=== PATIENT | male | born 1940 | race Hispanic/Latino ===

== ENCOUNTER 2016-03-08 09:46 | Day surgery (SDC) | payer MEDICARE ==
[2016-03-06 11:09] LABS: Basophils % (Auto) 0.8 % (0.0-1.8); Hematocrit 37.8 % (35.5-45.6); Hemoglobin 12.6 gm/dl (11.8-15.2); Mean Corpuscular HGB Conc 33 % (32-34); Mean Corpuscular Hemoglobin 31 pg (28-32); Mean Corpuscular Volume 93 fl (84-94); Platelet Count 263 K/mm3 (140-440); Red Blood Count 4.07 M/mm3 (3.65-5.03); Red Cell Distribution Width 13.7 % (13.2-15.2); White Blood Count 10.6 K/mm3 (4.5-11.0)
--- NOTE | 2016-03-06 11:12 | Anesthesia Consultation ---
Anesthesia Consult and Med Hx Date of service: 03/06/16 - Airway Anesthetic Teeth Evaluation: Good ROM Head & Neck: Adequate Mental/Hyoid Distance: Adequate Mallampati Class: Class III Intubation Access Assessment: Possibly Difficult - Pre-Operative Health Status ASA Pre-Surgery Classification: ASA3 Proposed Anesthetic Plan: General - Pulmonary Hx Smoking: Yes (CHEWING TOBACCO STOPPED X 4 YRS ) Hx Asthma: Yes (SEASONAL) Home Oxygen Therapy: Yes (at nights) Hx Sleep Apnea: Yes (DX SLEEP APNEA , NO CPAP USE,USES O2 AT NIGHT) - Cardiovascular System Hx Hypertension: Yes (1999) Hx Coronary Artery Disease: Yes Hx Heart Attack/AMI: Yes (1997) Hx Percutaneous Transluminal Coronary Angioplasty (PTCA): Yes (1997 in 1997) Hx Pacemaker: Yes (2014) Hx Peripheral Vascular Disease: Yes - Central Nervous System Hx Back Pain: (knee pain, uses cane) Hx Psychiatric Problems: No - Gastrointestinal Hx Gastroesophageal Reflux Disease: Yes - Endocrine Hx Renal Disease: Yes (decreased renal function) Hx End Stage Renal Disease: No Hx Non-Insulin Dependent Diabetes: Yes (diet control) Hx Hypothyroidism: Yes (ON MEDS) - Other Systems Hx Cancer: Yes (prostate CA, 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
[2016-03-06 11:20] LABS: INR 1.03 (0.87-1.13)
[2016-03-06 11:24] LABS: Alanine Aminotransferase 16 units/L (7-56); Albumin 3.9 g/dL (3.9-5); Albumin/Globulin Ratio 1.4 %; Alkaline Phosphatase 87 units/L (35-129); Anion Gap 16 mmol/L; BUN/Creatinine Ratio 24.28; Bilirubin,Total 0.7 mg/dL (0.1-1.2); Blood Urea Nitrogen 17 mg/dL (9-20); Calcium 9.5 mg/dL (8.4-10.2); Carbon Dioxide 29 mmol/L (22-30); Chloride 99.5 mmol/L (98-107); Glucose 101 mg/dL (75-100); Potassium 3.9 mmol/L (3.6-5.0); Sodium 141 mmol/L (137-145); Total Protein 6.7 g/dL (6.3-8.2)
[~2016-03-08 09:46] MED LIST: NACL 0.9% 1000 ML 1,000 ML IV SCH; PEPCID IV NR; VERSED IV NR; WATER FOR IRRIG STERILE IR ONE
[2016-03-08] MEDS ORDERED: DIPRIVAN 10 MG/ML IV ONE (10:48)
[2016-03-08] MEDS ORDERED: DILAUDID ONE (10:48)
[2016-03-08] MEDS ORDERED: NACL BACTERIOSTATIC INFILTRATI ONE (11:06)
--- NOTE | 2016-03-08 11:43 | Anesthesia Day of Surgery ---
Anesthesia Day of Surgery - Day of Surgery Patient Examined: Yes Patient H&P Reviewed: Yes Patient is NPO: Yes Beta Blockers: Yes
[2016-03-08] MEDS ORDERED: PEPCID IV NR (12:00)
[2016-03-08] MEDS ORDERED: ANCEF/STERILE WATER 2 GM/20 ML IV NR (12:00)
[2016-03-08] MEDS ORDERED: OMNIPAQUE 300 MG/50 ML (CATH LAB) IV ONE (13:12)
[2016-03-08] MEDS ORDERED: WATER FOR IRRIG STERILE IR ONE (13:12)
[2016-03-08] MEDS ORDERED: XYLOCAINE MPF 2% ONE (13:33)
[2016-03-08] MEDS ORDERED: ZOFRAN ONE (13:33)
--- NOTE | 2016-03-08 13:54 | Post Operative Note ---
Pre-op diagnosis: bladder cancer Post-op diagnosis: same Findings: erythema Procedure: cysto rpgs biopsie s Anesthesia: GETA Surgeon: LAILA LARSON Estimated blood loss: none Pathology: list (bladder) Specimen disposition: to lab Condition: stable Disposition: PACU
--- NOTE | 2016-03-08 13:56 | Discharge Summary ---
Short Stay Discharge Plan Activity: other (no straining ) Weight Bearing Status: Full Weight Bearing Diet: low fat, low cholesterol, low salt Special Instructions: other (inc fluids ) Durable Medical Equipment Needed Upon Discharge: other (teach maurer care ) Follow up with: MOY PHILLIPS MD [Primary Care Provider] - 7 Days LAILA LARSON MD [Staff Physician] - 03/10/16
[2016-03-08] MEDS ORDERED: NACL ONE (14:22)
--- NOTE | 2016-03-08 15:13 | Operative Report ---
PREOPERATIVE DIAGNOSIS: Bladder cancer. POSTOPERATIVE DIAGNOSIS: Bladder cancer. PROCEDURE: Cystoscopy, retrograde biopsy. SURGEON: Daniel Ortez M.D. ANESTHESIA: General. FINDINGS: This is a gentleman with history of bladder cancer, now presents for followup cystoscopy. DESCRIPTION OF PROCEDURE: The patient brought to the operating room and placed on the operating table. Following induction of general anesthesia, placed in lithotomy position, prepped and draped in usual sterile fashion. Cystourethroscopy showed narrowing in the urethra. The bladder neck was opened and scarred. There was erythema right distal to the left orifice. Retrograde showed lateral deviation, right ureter with renal masses bilaterally. Kidneys were enlarged. Biopsies were obtained of bladder neck, posterior bladder wall, right lateral wall prostatic urethra. The patient tolerated the procedure well. Area was cauterized. Blair catheter was left, he was brought to recovery room. Family notified. JOB# [id number] JACOBO/EDGAR
[2016-03-08 16:10] VITALS: BP 142/75
--- NOTE | 2016-03-08 16:52 | Cat Scan Report ---
CT ABDOMEN AND PELVIS WITHOUT AND WITH CONTRAST: INDICATION: Renal masses. COMPARISON: None similar. FINDINGS: Abdomen and pelvis CT performed before and after intravenous administration of 100 cc of Omnipaque 300. LUNG BASES: Mild bibasilar atelectasis posteriorly. No effusions. Normal heart size. Streak artifact from dual-chamber pacemaker leads. Atherosclerotic aortic and coronary calcifications. Right hemidiaphragm mildly elevated. ABDOMEN: Precontrast images demonstrate at least 2 nonobstructing right renal calculi, the largest towards the upper pole approximately 5 mm, axial image 83, series 2. At least 2 smaller nonobstructing left renal calculi also noted, the largest again towards the upper pole approximately 4 mm, axial image 81. Approximately 4.5 x 2.9 cm slightly lobulated right renal cortical hypodensity anteriorly measures 1 HU. Slight right renal malrotation possible. Mild bilateral perinephric stranding. Minimal, 7 mm dependent density within the gallbladder as well, axial image 64, series 2. Postcontrast images demonstrate liver, spleen, remainder gallbladder, pancreas, adrenals, nonaneurysmal though slightly tortuous abdominal aorta with few atherosclerotic aortoiliac calcifications, IVC and remainder kidneys within normal limits. Right renal hypodense lesion measures simple cystic on multiple phases with maximum attenuation of 8 Hounsfield units on the delayed phase. No ascites or size significant adenopathy. Nonopacified GI tract evaluation limited, though grossly nonobstructive. Small fat-containing umbilical hernia with a transverse neck of 1.4 cm. PELVIS: Blair catheter decompresses the urinary bladder, limiting assessment. Few pelvic surgical clips, possibly related to prostate and seminal vesicle removal. Unremarkable rectosigmoid. Few pelvic phleboliths. No free fluid or significant adenopathy. Approximately 1.5 cm right and 3.2 cm diameter left fat-containing inguinal hernias. [id number] multilevel degenerative changes along the imaged spine, including degenerative spurring, T10-T11 disc calcifications and multilevel lumbar disc degeneration, including vacuum phenomenon as also [id number] L1-L2 disc narrowing. CONCLUSION: 1. No acute CT abnormality in this patient with small, nonobstructing bilateral nephrolithiasis noted, as described. No suspicious renal enhancement with a simple right renal cortical cyst noted, as described. 2. Various other incidental findings, including pacemaker, bibasilar atelectasis, mildly elevated right hemidiaphragm, minimal cholelithiasis, possible prostatectomy, Blair catheter within the urinary bladder, fat-containing bilateral inguinal hernias and multilevel spinal degenerative changes, amongst others, as detailed above. Thank you for the opportunity to participate in this patient's care.
--- NOTE | 2016-03-09 09:13 | Fluoroscopy Report ---
Retrograde pyelogram: Injected contrast into the left ureter demonstrates normal ureter and intrarenal collecting system the period no filling defects. There is some question of splaying of upper pole infundibula and via a renal mass. Injection of contrast into the right ureter demonstrates an unremarkable ureter. There is marked splaying of the middle and lower calyces consistent with a mass. No filling defects or other findings. Impression: Findings raise suspicion of bilateral renal masses.
== END 2016-03-08 16:20 | disposition home or self-care (01) ==
LOC: OR 09:46
PROVIDERS: ATTEND Urology
DX: N30.20 Other chronic cystitis without hematuria (principal); N32.89 Other specified disorders of bladder; N35.9 Urethral stricture, unspecified; N28.81 Hypertrophy of kidney; K21.9 Gastro-esophageal reflux disease without esophagitis; I10 Essential (primary) hypertension; J45.909 Unspecified asthma, uncomplicated; I25.10 Atherosclerotic heart disease of native coronary artery without angina pectoris; E11.9 Type 2 diabetes mellitus without complications; E03.9 Hypothyroidism, unspecified; E78.00 Pure hypercholesterolemia, unspecified; I25.2 Old myocardial infarction; E66.9 Obesity, unspecified; Z68.36 Body mass index [BMI] 36.0-36.9, adult; Z85.46 Personal history of malignant neoplasm of prostate; Z85.51 Personal history of malignant neoplasm of bladder; Z95.5 Presence of coronary angioplasty implant and graft; Z95.0 Presence of cardiac pacemaker; Z87.891 Personal history of nicotine dependence; Z98.890 Other specified postprocedural states
CPT/HCPCS: 36415; 52204; 74178; 74420; 80053; 82962; 85025; 85610; 85730; 88112; 88305; 88307; A4217; C1758; J0690; J1170; J2405; J2704; J2930; J7030; Q9967

== ENCOUNTER 2016-06-09 10:18 | Outpatient (CLI) | payer MEDICARE, OTHER ==
--- NOTE | 2016-06-10 12:39 | Nuclear Medicine Report ---
NUCLEAR MEDICINE WHOLE-BODY BONE SCAN: 06/09/16 CLINICAL: Prostate cancer. Right knee pain. COMPARISON: None. TECHNIQUE: 25.0millicuries technetium 99m MDP was injected intravenously and whole body scans were obtained at 3 hours. FINDINGS: Normal distribution of radionuclide in the skeleton and soft tissues except for uptake in the knees, ankles and right shoulder consistent with arthritis. Slightly greater uptake in the right knee. No suspicious uptake. IMPRESSION: No evidence of metastasis.
== END 2016-06-09 10:19 | disposition home or self-care (01) ==
LOC: NM 10:18
PROVIDERS: ATTEND Urology
DX: M13.861 Other specified arthritis, right knee (principal); C61 Malignant neoplasm of prostate
CPT/HCPCS: 78306; A9503

== ENCOUNTER 2016-07-03 06:19 | Day surgery (SDC) | payer MEDICARE ==
[~2016-07-03 06:19] MED LIST changes: -PEPCID IV NR; +PEPCID PO NR; -VERSED IV NR; -WATER FOR IRRIG STERILE IR ONE
[2016-07-03] MEDS ORDERED: NACL BACTERIOSTATIC INFILTRATI ONE (06:54)
[2016-07-03] MEDS ORDERED: DECADRON ONE (06:56)
[2016-07-03] MEDS ORDERED: ZOFRAN ONE (06:56)
[2016-07-03] MEDS ORDERED: SUBLIMAZE ONE (06:57)
[2016-07-03] MEDS ORDERED: DIPRIVAN 10 MG/ML IV ONE (06:57)
[2016-07-03] MEDS ORDERED: XYLOCAINE MPF 2% ONE (06:57)
--- NOTE | 2016-07-03 07:00 | Anesthesia Consultation ---
Anesthesia Consult and Med Hx Date of service: 07/03/16 - Airway Anesthetic Teeth Evaluation: Good ROM Head & Neck: Adequate Mental/Hyoid Distance: Adequate Mallampati Class: Class II Intubation Access Assessment: Probably Good - Pulmonary Exam CTA: Yes - Cardiac Exam Cardiac Exam: RRR - Pre-Operative Health Status ASA Pre-Surgery Classification: ASA3 Proposed Anesthetic Plan: General - Pulmonary Hx Smoking: Yes (CHEWING TOBACCO STOPPED X 4 YRS ) Hx Asthma: Yes (SEASONAL) Hx Sleep Apnea: Yes (DX SLEEP APNEA , NO CPAP USE,USES O2 AT NIGHT) - Cardiovascular System Hx Hypertension: Yes (1999) Hx Coronary Artery Disease: Yes Hx Heart Attack/AMI: Yes (1997) Hx Percutaneous Transluminal Coronary Angioplasty (PTCA): Yes Hx Pacemaker: Yes (2014) Hx Peripheral Vascular Disease: Yes - Central Nervous System Hx Back Pain: Yes Hx Psychiatric Problems: No - Gastrointestinal Hx Gastroesophageal Reflux Disease: Yes - Endocrine Hx Renal Disease: Yes Hx End Stage Renal Disease: No Hx Non-Insulin Dependent Diabetes: Yes (diet control) Hx Hypothyroidism: Yes (ON MEDS) - Other Systems Hx Cancer: Yes (prostate CA, 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
--- NOTE | 2016-07-03 07:02 | Anesthesia Day of Surgery ---
Anesthesia Day of Surgery - Day of Surgery Patient Examined: Yes Patient H&P Reviewed: Yes Patient is NPO: Yes Beta Blockers: Yes
[2016-07-03 07:27] LABS: Hemoglobin 12.2 gm/dl (11.8-15.2)
[2016-07-03 07:40] LABS: Anion Gap 15 mmol/L; BUN/Creatinine Ratio 25.71; Blood Urea Nitrogen 18 mg/dL (9-20); Calcium 9.4 mg/dL (8.4-10.2); Carbon Dioxide 29 mmol/L (22-30); Chloride 101.9 mmol/L (98-107); Glucose 112 mg/dL (75-100); Potassium 3.9 mmol/L (3.6-5.0); Sodium 142 mmol/L (137-145)
[2016-07-03] MEDS ORDERED: ANCEF/STERILE WATER 2 GM/20 ML IV NR (08:10)
[2016-07-03] MEDS ORDERED: ePHEDrine SULFATE ONE (08:19)
[2016-07-03] MEDS ORDERED: WATER FOR IRRIG STERILE IR ONE ×2 (08:27)
[2016-07-03] MEDS ORDERED: DILAUDID IV PRN (08:37)
[2016-07-03] MEDS ORDERED: PERCOCET 5/325 PO PRN (08:37)
--- NOTE | 2016-07-03 09:18 | Post Operative Note ---
Date of procedure: 07/03/16 Pre-op diagnosis: bladder cancer Post-op diagnosis: same Findings: 1.5cm BT Procedure: cysto turbt rpgs Anesthesia: GETA Surgeon: LAILA LARSON Estimated blood loss: minimal Pathology: list (bladder) Specimen disposition: to lab Condition: stable Disposition: PACU
--- NOTE | 2016-07-03 09:19 | Discharge Summary ---
Short Stay Discharge Plan Activity: other (no straining ) Weight Bearing Status: Full Weight Bearing Diet: low fat, low cholesterol, low salt Special Instructions: other (teach maurer care ) Durable Medical Equipment Needed Upon Discharge: other (inc fluids ) Follow up with: MOY PHILLIPS MD [Primary Care Provider] - 7 Days LAILA LARSON MD [Staff Physician] - 3 Days
--- NOTE | 2016-07-03 09:36 | Post Anesthesia Evaluation ---
- Post Anesthesia Evaluation Patient Participated: Yes Airway Patent: Yes Stable Respiratory Function: Yes Nausea/Vomiting: No Temp > 96.8F: Yes Pain Manageable: Yes Adequeate Hydration: Yes Anesthesia Complications: No Block Receding Appropriately: Not Applicable Patient on Ventilator: No
--- NOTE | 2016-07-03 12:42 | Operative Report ---
PREOPERATIVE DIAGNOSIS: Bladder cancer. POSTOPERATIVE DIAGNOSIS: Bladder cancer with recurrent tumor over left orifice. PROCEDURE: Cystoscopy, retrograde, transurethral resection of bladder tumor and bladder biopsy. SURGEON: Daniel Ortez M.D. ANESTHESIA: General. FINDINGS: This is a gentleman with bladder tumor and a history of bladder cancer. He has a small papillary tumor about 1 to 1.5 cm above the left orifice. He had some erythema, which was previously biopsied. DESCRIPTION OF PROCEDURE: The patient was brought to the operating room and placed on the operating table. Following induction of anesthesia, placed in lithotomy position, prepped and draped in usual sterile fashion. Retrograde showed a delicate system with evidence of renal cyst and extrinsic compression. There was good drainage. At this point, biopsies were taken of the posterior wall erythema and right lateral wall. This was cauterized. Resectoscope was inserted and a small tumor was resected, being careful not to injure the left orifice. This was cauterized well away from the orifice. The patient tolerated the procedure well. We met with the family showed him the pictures, but we clearly saw some muscle and was brought to recovery in stable condition. JOB# [id number] JACOBO/EDGAR
[2016-07-03 13:57] VITALS: BP 145/76
--- NOTE | 2016-07-03 15:27 | Fluoroscopy Report ---
RETROGRADE PYELOGRAM: There is adequate filling of the ureters and intrarenal collecting systems with no filling defects or anatomic abnormalities identified.
== END 2016-07-03 11:45 | disposition home or self-care (01) ==
LOC: OR 06:19
PROVIDERS: ATTEND Urology
DX: C67.4 Malignant neoplasm of posterior wall of bladder (principal); C67.5 Malignant neoplasm of bladder neck; J44.9 Chronic obstructive pulmonary disease, unspecified; I10 Essential (primary) hypertension; I25.10 Atherosclerotic heart disease of native coronary artery without angina pectoris; K21.9 Gastro-esophageal reflux disease without esophagitis; E11.9 Type 2 diabetes mellitus without complications; E78.5 Hyperlipidemia, unspecified; E03.9 Hypothyroidism, unspecified; E66.9 Obesity, unspecified; Z68.36 Body mass index [BMI] 36.0-36.9, adult; Z95.0 Presence of cardiac pacemaker; Z85.46 Personal history of malignant neoplasm of prostate; Z87.891 Personal history of nicotine dependence
CPT/HCPCS: 36415; 52204; 52234; 74420; 80048; 82962; 85014; 85018; 88305; A4217; C1758; J0690; J1170; J2405; J2704; J3010; J7030; Q9967; J1100

== ENCOUNTER 2016-11-27 07:25 | Day surgery (SDC) | payer MEDICARE ==
[~2016-11-27 07:25] MED LIST changes: +NACL BACTERIOSTATIC INFILTRATI ONE
--- NOTE | 2016-11-27 08:02 | Anesthesia Consultation ---
Anesthesia Consult and Med Hx Date of service: 11/27/16 - Airway Anesthetic Teeth Evaluation: Good ROM Head & Neck: Adequate Mental/Hyoid Distance: Adequate Mallampati Class: Class II Intubation Access Assessment: Probably Good - Pulmonary Exam CTA: Yes - Cardiac Exam Cardiac Exam: RRR - Pre-Operative Health Status ASA Pre-Surgery Classification: ASA3 Proposed Anesthetic Plan: General - Pulmonary Hx Smoking: Yes (CHEWING TOBACCO STOPPED X 4 YRS ) Hx Asthma: Yes (SEASONAL) Hx Sleep Apnea: Yes (DX SLEEP APNEA , NO CPAP USE,USES O2 AT NIGHT) - Cardiovascular System Hx Hypertension: Yes (1999) Hx Coronary Artery Disease: Yes Hx Heart Attack/AMI: Yes (1997) Hx Percutaneous Transluminal Coronary Angioplasty (PTCA): Yes Hx Pacemaker: Yes (2014) Hx Peripheral Vascular Disease: Yes - Central Nervous System Hx Back Pain: Yes Hx Psychiatric Problems: No - Gastrointestinal Hx Gastroesophageal Reflux Disease: Yes (once a month) - Endocrine Hx Renal Disease: Yes Hx End Stage Renal Disease: No Hx Non-Insulin Dependent Diabetes: Yes (diet control) Hx Hypothyroidism: Yes (ON MEDS) - Other Systems Hx Cancer: Yes (prostate CA, 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
--- NOTE | 2016-11-27 08:02 | Anesthesia Day of Surgery ---
Anesthesia Day of Surgery - Day of Surgery Patient Examined: Yes Patient H&P Reviewed: Yes Patient is NPO: Yes
[2016-11-27 08:16] LABS: Hematocrit 33.7 % (35.5-45.6); Hemoglobin 11.8 gm/dl (11.8-15.2)
[2016-11-27] MEDS ORDERED: SUBLIMAZE ONE (08:26)
[2016-11-27] MEDS ORDERED: ZOFRAN ONE (08:26)
[2016-11-27] MEDS ORDERED: XYLOCAINE MPF 2% ONE (08:26)
[2016-11-27] MEDS ORDERED: DIPRIVAN 10 MG/ML IV ONE ×2 (08:27→09:43)
[2016-11-27] MEDS ORDERED: ePHEDrine SULFATE ONE (08:51)
[2016-11-27] MEDS ORDERED: ANCEF/STERILE WATER 2 GM/20 ML 2 GM/20 ML SYRINGE IV NR (09:00)
[2016-11-27] MEDS ORDERED: LASIX ONE (10:13)
--- NOTE | 2016-11-27 10:27 | Post Operative Note ---
Date of procedure: 11/27/16 Pre-op diagnosis: heme and bladder cancer Post-op diagnosis: same Findings: ant wall tumor and dome Procedure: cysto biopsies turbt Anesthesia: GETA Surgeon: LAILA LARSON Estimated blood loss: minimal Pathology: list (bladder) Specimen disposition: to lab Condition: stable Disposition: PACU
--- NOTE | 2016-11-27 10:29 | Discharge Summary ---
Short Stay Discharge Plan Activity: other (inc fluids ) Weight Bearing Status: Non-Weight Bearing Diet: low fat, low cholesterol, low salt Special Instructions: other (maurer care ) Durable Medical Equipment Needed Upon Discharge: other (inc fluids ) Follow up with: MOY PHILLIPS MD [Primary Care Provider] - 7 Days LAILA LARSON MD [Staff Physician] - 7 Days
[2016-11-27] MEDS ORDERED: WATER FOR IRRIG STERILE IR ONE ×2 (10:36)
[2016-11-27] MEDS ORDERED: SORBITOL-MANNITOL IRRIG IR ONE (10:37)
--- NOTE | 2016-11-27 10:59 | Operative Report ---
PREOPERATIVE DIAGNOSES: Gross hematuria, history of bladder cancer. POSTOPERATIVE DIAGNOSES: Gross hematuria, history of bladder cancer with tumor, anterior wall and dome. PROCEDURE: Cystoscopy, multiple bladder biopsies, retrograde. SURGEON: Daniel Ortez MD ANESTHESIA: General. FINDINGS: This is a gentleman who is a little late for followup, but had gross hematuria with occasional clots, now presents for cystoscopy. DESCRIPTION OF PROCEDURE: The patient was brought to the operating room and placed on the operating table. Following induction of anesthesia, placed in lithotomy position, prepped and draped in usual sterile fashion. Cystourethroscopy was carried out under direct vision. The urethra was slightly narrow, but no DVIU was required. The bladder neck was open. We entered the bladder and there was old blood at the base, no clots. The left orifice was a little patulous and retrograde showed evidence of some renal cysts. At this point, using the degree lenses, there was a bladder tumor, anterior wall of the bladder, which was oozing. It was actively bleeding, but slowly. There was also patchy area towards the dome of papillary tumor, a little bit of a patch about 1-1.5 cm. Multiple bladder biopsies were done and then that patchy area was excised with a rigid angled biopsy instrument and cauterized down to fatty tissue. We did see fatty tissue. The small tumor, which was about 1 cm was more to more anterior even with torquing the scope under and using the camera, it was hard to get the loop behind it safely. We resected just a little bit of it and then we used the cautery circumferentially and cauterized the entire tumor. It was actively bleeding from about the 9 o'clock position which was stopped. The patient tolerated the procedure well. We cauterized it down to the muscular layer. He is an ill gentleman with multiple comorbidities and he may need a partial cystectomy, but I do not know he can tolerate it with a pacemaker and heart disease. At this point, hemostasis was excellent. We placed a 2-way 22 catheter, brought to recovery in stable condition. JOB# [id number] JACOBO/EDGAR
--- NOTE | 2016-11-27 11:08 | Fluoroscopy Report ---
RETROGRADE PYELOGRAM: History: Gross hematuria. There is adequate filling of the ureters and intrarenal collecting systems with no filling defects or anatomic abnormalities identified. History: No abnormality identified.
[2016-11-27 19:03] VITALS: BP 142/91
== END 2016-11-27 12:59 | disposition home or self-care (01) ==
LOC: OR 07:25
PROVIDERS: ATTEND Urology
DX: C67.1 Malignant neoplasm of dome of bladder (principal); R31.0 Gross hematuria; I10 Essential (primary) hypertension; J45.909 Unspecified asthma, uncomplicated; I25.10 Atherosclerotic heart disease of native coronary artery without angina pectoris; I25.2 Old myocardial infarction; I73.9 Peripheral vascular disease, unspecified; E11.9 Type 2 diabetes mellitus without complications; E03.9 Hypothyroidism, unspecified; K21.9 Gastro-esophageal reflux disease without esophagitis; E66.9 Obesity, unspecified; Z85.51 Personal history of malignant neoplasm of bladder; Z87.891 Personal history of nicotine dependence; Z95.5 Presence of coronary angioplasty implant and graft; Z95.0 Presence of cardiac pacemaker; Z68.36 Body mass index [BMI] 36.0-36.9, adult
CPT/HCPCS: 36415; 52204; 74420; 82962; 84132; 85014; 85018; 88305; A4217; J1940; J2405; J2704; J3010; J7030; Q9967

== ENCOUNTER 2017-03-07 12:10 | Day surgery (SDC) | payer MEDICARE ==
[~2017-03-07 12:10] MED LIST changes: +ANCEF/STERILE WATER 2 GM/20 ML 2 GM/20 ML SYRINGE IV NR; -NACL 0.9% 1000 ML 1,000 ML IV SCH; -NACL BACTERIOSTATIC INFILTRATI ONE; -PEPCID PO NR
[2017-03-07] MEDS ORDERED: NACL BACTERIOSTATIC INFILTRATI ONE (12:55)
--- NOTE | 2017-03-07 13:16 | Anesthesia Consultation ---
Anesthesia Consult and Med Hx Date of service: 03/07/17 - Airway Anesthetic Teeth Evaluation: Good ROM Head & Neck: Adequate Mental/Hyoid Distance: Adequate Mallampati Class: Class III Intubation Access Assessment: Possibly Difficult - Pulmonary Exam CTA: Yes - Cardiac Exam Cardiac Exam: RRR - Pre-Operative Health Status ASA Pre-Surgery Classification: ASA3 Proposed Anesthetic Plan: General - Pulmonary Hx Smoking: Yes (CHEWING TOBACCO STOPPED X 4 YRS ) Hx Asthma: Yes (SEASONAL) Hx Sleep Apnea: Yes (DX SLEEP APNEA , NO CPAP USE,USES O2 AT NIGHT) - Cardiovascular System Hx Hypertension: Yes (1999) Hx Coronary Artery Disease: Yes Hx Heart Attack/AMI: Yes (1997, has LDA stent) Hx Percutaneous Transluminal Coronary Angioplasty (PTCA): Yes Hx Pacemaker: Yes (2014) Hx Peripheral Vascular Disease: Yes - Central Nervous System Hx Back Pain: Yes Hx Psychiatric Problems: No - Gastrointestinal Hx Gastroesophageal Reflux Disease: Yes (once a month) - Endocrine Hx End Stage Renal Disease: No Hx Non-Insulin Dependent Diabetes: Yes (diet control) Hx Hypothyroidism: Yes (ON MEDS) - Other Systems Hx Cancer: Yes (prostate CA, 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 - Additional Comments Anesthesia Medical History Comments: NAC. Airway looks difficult for ETT. Pt. has pacemaker.
--- NOTE | 2017-03-07 13:17 | Anesthesia Day of Surgery ---
Anesthesia Day of Surgery - Day of Surgery Patient Examined: Yes Patient H&P Reviewed: Yes Patient is NPO: Yes
[2017-03-07] MEDS ORDERED: DIPRIVAN 10 MG/ML IV ONE ×2 (13:18→14:17)
[2017-03-07] MEDS ORDERED: SUBLIMAZE ONE (13:20)
[2017-03-07] MEDS ORDERED: NEO SYNEPHRINE/NS Syringe(OR USE) IV ONE (13:29)
[2017-03-07] MEDS ORDERED: OMNIPAQUE 300 MG/50 ML (CATH LAB) IV ONE (13:56)
[2017-03-07] MEDS ORDERED: WATER FOR IRRIG STERILE IR ONE ×3 (13:56→13:57)
[2017-03-07] MEDS ORDERED: PEPCID IV NR (14:00)
[2017-03-07] MEDS ORDERED: NACL 0.9% 1000 ML 1,000 ML IV SCH (14:00)
[2017-03-07] MEDS ORDERED: XYLOCAINE MPF 2% ONE (14:27)
[2017-03-07] MEDS ORDERED: ZOFRAN ONE (14:27)
[2017-03-07] MEDS ORDERED: PERCOCET 5/325 PO PRN (14:32)
[2017-03-07] MEDS ORDERED: MORPHINE IV PRN (14:32)
[2017-03-07] MEDS ORDERED: ZOFRAN IV PRN (14:32)
--- NOTE | 2017-03-07 15:02 | Post Operative Note ---
Date of procedure: 03/07/17 Pre-op diagnosis: bladder cancer Post-op diagnosis: same Findings: r hydro min erythema Procedure: cysto rpg r ureteroscopy j stent biopsies Anesthesia: GETA Surgeon: LAILA LARSON Estimated blood loss: minimal Pathology: list (bladder) Specimen disposition: to lab Condition: stable Disposition: PACU
--- NOTE | 2017-03-07 15:04 | Discharge Summary ---
Short Stay Discharge Plan Activity: other (no straining ) Weight Bearing Status: Full Weight Bearing Diet: low fat, low cholesterol, low salt Special Instructions: other (inc fluids ) Durable Medical Equipment Needed Upon Discharge: other (j stent ... do not pull string ) Follow up with: MOY PHILLIPS MD [Primary Care Provider] - 7 Days LAILA LARSON MD [Staff Physician] - 7 Days
--- NOTE | 2017-03-07 15:58 | Post Anesthesia Evaluation ---
- Post Anesthesia Evaluation Patient Participated: Yes Airway Patent: Yes Stable Respiratory Function: Yes Temp > 96.8F: Yes Pain Manageable: Yes Adequeate Hydration: Yes Anesthesia Complications: No
--- NOTE | 2017-03-07 16:37 | Fluoroscopy Report ---
Retrograde pyelogram and right ureteral dilatation: Injection of contrast is made into the left ureter with good opacification of a normal-appearing ureter and partially imaged intrarenal collecting system. Injection on the right side demonstrates narrowing of the distal ureter with mild dilatation of the more proximal ureter. The intrarenal collecting system is relatively well visualized and appears normal. A balloon was placed seemingly in the transitions of the distal ureter and dilated. The inferior portion of the balloon however tapers with incomplete distention. A right internal stent was left in place.
[2017-03-07 17:13] VITALS: BP 167/78
--- NOTE | 2017-03-07 19:08 | Operative Report ---
PREOPERATIVE DIAGNOSIS: History of bladder cancer. POSTOPERATIVE DIAGNOSES: History of bladder cancer with slight erythema and right hydronephrosis. PROCEDURE: Cystoscopy, retrograde with bladder biopsies, right ureteral balloon dilatation, right ureteroscopy, double-J stent. SURGEON: Daniel Ortez MD. ANESTHESIA: General. FINDINGS: This is a gentleman with history of bladder cancer, previous biopsies and resection of tumors. Now presents for followup. DESCRIPTION OF PROCEDURE: The patient was brought to the operating room and placed on the operating table. Following induction of anesthesia, placed in the lithotomy position, prepped and draped in usual sterile fashion. Cystourethroscopy showed an open bladder neck with areas of scarring from previous biopsies. He has minimal erythema where the previous tumor was. Biopsy of surrounding scar was carried out, area was cauterized. Also, biopsy of posterior wall was carried out. Retrograde showed a moderate right hydroureteronephrosis and dilatation on the right side. There was slight erythema around that and the orifice was a little bit medially deviated ____ mild J hooking. A wire coiled up in the kidney and balloon dilatation was carried out. There was no tumor in the orifice. No stones in the orifice. A double J was left. The patient tolerated the procedure well. No significant complications. A Blair catheter was not required, brought to recovery in stable condition. JOB# [id number] JACOBO/EDGAR
== END 2017-03-07 16:35 | disposition home or self-care (01) ==
LOC: OR 12:10
PROVIDERS: ATTEND Urology
DX: N13.39 Other hydronephrosis (principal); Z85.51 Personal history of malignant neoplasm of bladder; I25.10 Atherosclerotic heart disease of native coronary artery without angina pectoris; I10 Essential (primary) hypertension; E78.00 Pure hypercholesterolemia, unspecified; I73.9 Peripheral vascular disease, unspecified; Z87.891 Personal history of nicotine dependence; J45.909 Unspecified asthma, uncomplicated; Z85.46 Personal history of malignant neoplasm of prostate; Z98.890 Other specified postprocedural states; I21.3 ST elevation (STEMI) myocardial infarction of unspecified site; K21.9 Gastro-esophageal reflux disease without esophagitis; E11.40 Type 2 diabetes mellitus with diabetic neuropathy, unspecified; E03.9 Hypothyroidism, unspecified; E66.9 Obesity, unspecified; Z68.36 Body mass index [BMI] 36.0-36.9, adult; Z82.49 Family history of ischemic heart disease and other diseases of the circulatory system
CPT/HCPCS: 36415; 52204; 52332; 74420; 74485; 82962; 84132; 88112; 88305; A4217; C1726; C1758; C1769; C2617; J0690; J2405; J2704; J3010; J7030; Q9967; J2370

== ENCOUNTER 2017-07-02 07:53 | Day surgery (SDC) | payer MEDICARE ==
[2017-07-02] MEDS ORDERED: ANCEF/STERILE WATER 2 GM/20 ML 2 GM/20 ML SYRINGE IV NR (09:00)
[2017-07-02] MEDS ORDERED: XYLOCAINE MPF 2% ONE (09:20)
[2017-07-02] MEDS ORDERED: SUBLIMAZE ONE (09:20)
[2017-07-02] MEDS ORDERED: DIPRIVAN 10 MG/ML IV ONE (09:21)
[2017-07-02] MEDS ORDERED: NACL 0.9% 1000 ML 1,000 ML IV SCH (10:00)
[2017-07-02] MEDS ORDERED: SORBITOL-MANNITOL IRRIG IR ONE (10:19)
[2017-07-02] MEDS ORDERED: METHYLENE BLUE IV ONE (10:19)
[2017-07-02] MEDS ORDERED: OMNIPAQUE (240mg) IV ONE (10:19)
[2017-07-02] MEDS ORDERED: NACL 0.9% IR ONE (10:19)
--- NOTE | 2017-07-02 10:32 | Post Operative Note ---
Date of procedure: 07/02/17 Pre-op diagnosis: bladder cancer Post-op diagnosis: same Findings: bladder tumors Procedure: cysto rpgs turbt s Anesthesia: GETA Surgeon: LAILA LARSON Estimated blood loss: minimal Pathology: list (bladder tomors) Specimen disposition: to lab Condition: stable Disposition: PACU
[2017-07-02] MEDS ORDERED: METHYLENE BLUE ONE (10:56)
[2017-07-02] MEDS ORDERED: NEO SYNEPHRINE/NS Syringe(OR USE) IV ONE (11:19)
--- NOTE | 2017-07-02 11:52 | Discharge Summary ---
Short Stay Discharge Plan Activity: other (no straining ) Weight Bearing Status: Partial Weight Bearing Diet: low fat, low cholesterol, low salt, diabetic Special Instructions: other (maurer care ) Durable Medical Equipment Needed Upon Discharge: other (maurer) Follow up with: MOY PHILLIPS MD [Primary Care Provider] - 7 Days LAILA LARSON MD [Staff Physician] - 3 Days
--- NOTE | 2017-07-02 12:23 | Anesthesia Day of Surgery ---
Anesthesia Day of Surgery - Day of Surgery Patient Examined: Yes Patient H&P Reviewed: Yes Patient is NPO: Yes
--- NOTE | 2017-07-02 12:24 | Anesthesia Consultation ---
Anesthesia Consult and Med Hx Date of service: 07/02/17 - Airway Anesthetic Teeth Evaluation: Good ROM Head & Neck: Inadequate Mental/Hyoid Distance: Inadequate Mallampati Class: Class IV Intubation Access Assessment: Difficult - Pulmonary Exam CTA: Yes - Cardiac Exam Cardiac Exam: RRR - Pre-Operative Health Status ASA Pre-Surgery Classification: ASA3 Proposed Anesthetic Plan: General - Pulmonary Hx Smoking: Yes (CHEWING TOBACCO STOPPED X 4 YRS ) Hx Asthma: Yes (SEASONAL) Hx Sleep Apnea: Yes (DX SLEEP APNEA , NO CPAP USE,USES O2 AT NIGHT) - Cardiovascular System Hx Hypertension: Yes (1999) Hx Coronary Artery Disease: Yes Hx Heart Attack/AMI: Yes (1997, has LDA stent) Hx Percutaneous Transluminal Coronary Angioplasty (PTCA): Yes Hx Pacemaker: Yes (2014) Hx Peripheral Vascular Disease: Yes - Central Nervous System Hx Back Pain: Yes Hx Psychiatric Problems: No - Gastrointestinal Hx Gastroesophageal Reflux Disease: Yes (once a month) - Endocrine Hx End Stage Renal Disease: No Hx Non-Insulin Dependent Diabetes: Yes (diet control) Hx Hypothyroidism: Yes (ON MEDS) - Other Systems Hx Cancer: Yes (prostate CA, 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
--- NOTE | 2017-07-02 12:24 | Post Anesthesia Evaluation ---
- Post Anesthesia Evaluation Patient Participated: Yes Airway Patent: Yes Stable Respiratory Function: Yes Nausea/Vomiting: No Temp > 96.8F: Yes Pain Manageable: Yes Adequeate Hydration: Yes Anesthesia Complications: No
[2017-07-02 14:17] VITALS: BP 143/71
--- NOTE | 2017-07-02 19:10 | Operative Report ---
PREOPERATIVE DIAGNOSIS: Bladder cancer. POSTOPERATIVE DIAGNOSIS: Bladder cancer. PROCEDURE: Small papillary tumors at the level of the trigone, close to the orifices bilaterally. PROCEDURE: Cystoscopy, transurethral resection of bladder tumor and bladder neck biopsy, retrograde. SURGEON: Daniel Ortez MD ANESTHESIA: General. FINDINGS: This is a gentleman with recurrent bladder cancer. These are small little papillary lesions, right towards the trigone and bladder neck. These are the beginning of recurrent lesions. He now presents for treatment. DESCRIPTION OF PROCEDURE: The patient was brought to the operating room and placed on the operating table. Following induction of anesthesia, placed in lithotomy position, prepped and draped in sterile fashion. Cystourethroscopy showed the small lesions, right surrounding the orifices. We gave the patient some ____ just in case we have to resect the orifices, but really we were very meticulously dissected around the orifices, cauterized, we needed to do. He has many comorbidities. He is 76 years old. We resected all visible tumor and the orifices were just basically on amount. Retrograde showed good filling with evidence of a renal cyst, renal masses as known on his previous CT scan. The patient tolerated the procedure well with no significant bleeding. A 22 two-way catheter was placed and irrigated clear, brought to recovery room in stable condition. All visible tumor was resected. He is very superficial, was brought to recovery in stable condition. Family notified. JOB# [id number] JACOBO/EDGAR
--- NOTE | 2017-07-03 07:19 | Fluoroscopy Report ---
FLUOROSCOPY RETROGRADE UROGRAPHY: HISTORY: Bladder cancer. FINDINGS: Fluoroscopy was provided by radiology during retrograde urography by the urologist. 11 fluoroscopic images were captured. There is adequate filling of the ureters and intrarenal collecting systems with no filling defects or anatomic abnormalities identified. Please correlate with the procedural report if needed. Per the operative notes, bladder biopsy was performed. IMPRESSION: Retrograde pyelograms within normal limits.
== END 2017-07-02 13:06 | disposition home or self-care (01) ==
LOC: OR 07:53
PROVIDERS: ATTEND Urology
DX: C67.4 Malignant neoplasm of posterior wall of bladder (principal); J45.909 Unspecified asthma, uncomplicated; I10 Essential (primary) hypertension; I25.10 Atherosclerotic heart disease of native coronary artery without angina pectoris; I25.2 Old myocardial infarction; I73.9 Peripheral vascular disease, unspecified; K21.9 Gastro-esophageal reflux disease without esophagitis; E66.9 Obesity, unspecified; G47.33 Obstructive sleep apnea (adult) (pediatric); Z68.36 Body mass index [BMI] 36.0-36.9, adult; Z85.46 Personal history of malignant neoplasm of prostate; Z79.899 Other long term (current) drug therapy; Z87.891 Personal history of nicotine dependence; Z95.5 Presence of coronary angioplasty implant and graft; Z95.0 Presence of cardiac pacemaker; Z85.830 Personal history of malignant neoplasm of bone; Z88.8 Allergy status to other drugs, medicaments and biological substances
CPT/HCPCS: 36415; 52234; 74420; 82962; 84132; 88305; A4217; J0690; J2370; J2704; J3010; J7030; Q9967; Q9968

== ENCOUNTER 2017-10-15 06:59 | Day surgery (SDC) | payer MEDICARE ==
[2017-10-15] MEDS ORDERED: ZOFRAN IV PRN (07:26)
[2017-10-15] MEDS ORDERED: NACL 0.9% 1000 ML 1,000 ML IV SCH (08:00)
--- NOTE | 2017-10-15 08:15 | Anesthesia Consultation ---
Anesthesia Consult and Med Hx - Airway Anesthetic Teeth Evaluation: Good ROM Head & Neck: Adequate Mental/Hyoid Distance: Adequate Mallampati Class: Class IV Intubation Access Assessment: Possibly Difficult - Pulmonary Exam CTA: Yes - Cardiac Exam Cardiac Exam: No Murmur - Pre-Operative Health Status ASA Pre-Surgery Classification: ASA3 Proposed Anesthetic Plan: General - Pulmonary Hx Smoking: Yes (CHEWING TOBACCO STOPPED X 4 YRS ) Hx Asthma: Yes (SEASONAL) Hx Sleep Apnea: Yes (DX SLEEP APNEA , NO CPAP USE,USES O2 AT NIGHT) - Cardiovascular System Hx Hypertension: Yes (1999) Hx Coronary Artery Disease: Yes Hx Heart Attack/AMI: Yes (1997, has LAD stent) Hx Percutaneous Transluminal Coronary Angioplasty (PTCA): Yes Hx Pacemaker: Yes (2014) Hx Peripheral Vascular Disease: Yes (LEGS) - Central Nervous System Hx Back Pain: Yes Hx Psychiatric Problems: No - Gastrointestinal Hx Gastroesophageal Reflux Disease: Yes (once a month) - Endocrine Hx End Stage Renal Disease: No Hx Non-Insulin Dependent Diabetes: Yes (diet control) Hx Hypothyroidism: Yes (ON MEDS) - Other Systems Hx Cancer: Yes (prostate CA, 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
--- NOTE | 2017-10-15 08:16 | Anesthesia Day of Surgery ---
Anesthesia Day of Surgery - Day of Surgery Patient Examined: Yes Patient H&P Reviewed: Yes Patient is NPO: Yes Beta Blockers: Yes Cardiac Clearance: Yes Pulmonary Clearance: No
[2017-10-15] MEDS ORDERED: NACL BACTERIOSTATIC INFILTRATI ONE (08:23)
[2017-10-15] MEDS ORDERED: DIPRIVAN 10 MG/ML IV ONE ×2 (09:47→09:48)
[2017-10-15] MEDS ORDERED: VERSED ONE (09:49)
[2017-10-15] MEDS ORDERED: SUBLIMAZE ONE ×2 (09:49→10:56)
[2017-10-15] MEDS ORDERED: ANCEF/STERILE WATER 2 GM/20 ML IV NR (10:00)
[2017-10-15] MEDS ORDERED: METHYLENE BLUE ONE (10:20)
[2017-10-15] MEDS ORDERED: METHYLENE BLUE IV ONE (10:25)
[2017-10-15] MEDS ORDERED: WATER FOR IRRIG STERILE IR ONE ×2 (10:26)
[2017-10-15] MEDS ORDERED: LASIX ONE (11:03)
[2017-10-15] MEDS ORDERED: ZOFRAN ONE (11:03)
[2017-10-15] MEDS: DILAUDID IV PRN ×2 (11:31→11:40)
--- NOTE | 2017-10-15 11:35 | Post Operative Note ---
Date of procedure: 10/15/17 Pre-op diagnosis: bladder cancer Post-op diagnosis: same Findings: bladder cancer Procedure: cysto turbt rpgs Anesthesia: GETA Surgeon: LAILA LARSON Estimated blood loss: minimal Pathology: list (bladder) Specimen disposition: to lab Condition: stable Disposition: PACU
--- NOTE | 2017-10-15 11:36 | Discharge Summary ---
Short Stay Discharge Plan Activity: other (no straining ) Weight Bearing Status: Full Weight Bearing Diet: low fat, low cholesterol, low salt Special Instructions: other (inc fluids ) Durable Medical Equipment Needed Upon Discharge: other (maurer ) Follow up with: MOY PHILLIPS MD [Primary Care Provider] - 7 Days LAILA LARSON MD [Staff Physician] - 7 Days
--- NOTE | 2017-10-15 11:39 | Operative Report ---
PREOPERATIVE DIAGNOSES: History of bladder cancer with radiation, previous prostate cancer, post-radical prostatectomy with radiation. POSTOPERATIVE DIAGNOSES: History of bladder cancer with radiation, previous prostate cancer, post-radical prostatectomy with radiation. PROCEDURE: Cystoscopy, retrograde, transurethral resection of bladder tumors. SURGEON: Daniel Ortez MD ANESTHESIA: General. FINDINGS: This is a gentleman, who has had multiple bladder cancer treatments over the years. He has had radiation. He has recurrent hematuria. He has had intravesical therapy. He now presents for treatment. DESCRIPTION OF PROCEDURE: The patient brought to the operating room and placed on the operating table. Following induction of anesthesia, placed in lithotomy position, prepped and draped in usual sterile fashion. Cystourethroscopy showed an open bladder neck. There was erythema around the trigone and right above the left orifice. In addition, there was a small papillary tumor, probably about 5 mm right lateral wall. This was removed and cauterized. Transverse resection of the trigone and bladder neck were carried out after we did retrograde and identified the orifices. We resected around the orifice and did not require a stent. The patient tolerated the procedure well. We again had another long discussion with his . He is not a good candidate for radical cystectomy. Severe obesity, heart disease, lung disease, and we will manage this as best we can. He may need if there is invasion radiation and chemo if he is able to have more radiation, which is unlikely. The patient tolerated the procedure well. We are managing this as best possible. There were no large tumors. Also, this was also though sessile except for one small tiny papillary tumor, brought to recovery room in stable condition. JOB# [id number] JACOBO/EDGAR
[2017-10-15 13:29] VITALS: BP 137/77
--- NOTE | 2017-10-15 15:28 | Fluoroscopy Report ---
FLUOROSCOPY RETROGRADE UROGRAPHY: HISTORY: Bladder cancer. FINDINGS: Fluoroscopy was provided by radiology during retrograde urography by the urologist. 4 fluoroscopic images were captured. Only the distal ureters were opacified bilaterally because of multiple bladder tumors near the opening of the ureteral orifices. No filling defect or abnormal dilatation is detected in the distal ureters bilaterally. Multiple bladder biopsies were performed per the operative notes. Please correlate with the procedural notes as needed. IMPRESSION: Limited exam. The distal ureters are within normal limits. See above.
== END 2017-10-15 13:39 | disposition home or self-care (01) ==
LOC: OR 06:59
PROVIDERS: ATTEND Urology
DX: C67.9 Malignant neoplasm of bladder, unspecified (principal); N02.9 Recurrent and persistent hematuria with unspecified morphologic changes; C61 Malignant neoplasm of prostate; E78.5 Hyperlipidemia, unspecified; I25.10 Atherosclerotic heart disease of native coronary artery without angina pectoris; I10 Essential (primary) hypertension; I25.2 Old myocardial infarction; G47.30 Sleep apnea, unspecified; E11.9 Type 2 diabetes mellitus without complications; J45.909 Unspecified asthma, uncomplicated; E03.9 Hypothyroidism, unspecified; M19.90 Unspecified osteoarthritis, unspecified site; K21.9 Gastro-esophageal reflux disease without esophagitis; E66.9 Obesity, unspecified; Z68.37 Body mass index [BMI] 37.0-37.9, adult; Z79.899 Other long term (current) drug therapy; Z79.82 Long term (current) use of aspirin; Z87.891 Personal history of nicotine dependence; Z98.890 Other specified postprocedural states; Z95.0 Presence of cardiac pacemaker; Z87.442 Personal history of urinary calculi; Z82.49 Family history of ischemic heart disease and other diseases of the circulatory system
CPT/HCPCS: 36415; 52234; 74420; 82962; 84132; 88112; 88305; A4217; J0690; J1170; J1940; J2250; J2405; J2704; J3010; J7030; Q9967; Q9968